=== PATIENT | male | born 1975 | race Two or more races ===

== ENCOUNTER 2025-01-04 16:48 | Emergency (ER) | payer SELFPAY ==
[2025-01-04 17:01] VITALS: TEMP 98.6; BMI 37.8
[2025-01-04] MEDS ORDERED: KETOROLAC TROMETHAMINE 30 MG/1 ML VIAL ONE ×2 (18:02→18:15)
[2025-01-04] MEDS ORDERED: ACETAMINOPHEN 500 MG TABLET (FP) ONE (18:02)
[2025-01-04] MEDS: ACETAMINOPHEN 500 MG TABLET (FP) PO ONE (18:12)
[2025-01-04] MEDS: KETOROLAC TROMETHAMINE 30 MG/1 ML VIAL IM ONE (18:14)
[2025-01-04] MEDS: morphine CARPU-JECT 4 MG/1 ML DISP.SYRIN IM ONE (20:45)
[2025-01-04 21:58] LABS: ABSOLUTE IMMATURE GRANULOCYTES 0.04 x10^3/uL (0.0-0.031); BASOPHILS # 0.05 x10^3/uL (0.01-0.08); EOSINOPHIL % 0.6 % (0.8-7.0); EOSINOPHILS # 0.07 x10^3/uL (0.04-0.54); MCHC 33.7 g/dl (32.3-36.5); MEAN CELL VOLUME 101.2 fl (79.0-92.2); MEAN PLT VOLUME 9.0 fl (9.4-12.4); MONOCYTE # 0.94 x10^3/uL (0.30-0.82); MONOCYTE % 7.9 % (5.3-12.2); RDW 11.9 % (12.1-15.9)
[2025-01-04] MEDS ORDERED: LIDOCAINE PATCH REMOVAL MC SCH (22:00)
[2025-01-04 22:25] LABS: CO2 26.0 mmol/L (21-32); GLUCOSE,RANDOM 116.0 mg/dL (74-106)
[2025-01-04 22:28] LABS: CREATININE 0.7 mg/dL (0.55-1.3); SGOT/AST 76.0 U/L (15-37); SGPT/ALT 60.0 U/L (13-61)
[2025-01-04 22:29] LABS: TOT PROT 7.7 g/dl (6.4-8.2)
[2025-01-04 22:31] LABS: ALK PHOS 96.0 U/L (45-117)
[2025-01-04 23:16] LABS: HCV DIAGNOSTIC IN-HOUSE W/RFLX NON-REACTIVE (NONREACTIVE)
[2025-01-04 23:19] LABS: HIV INTERPRETATION NEGATIVE (NEGATIVE)
[2025-01-05] MEDS ORDERED: LIDOCAINE 4% PATCH TP ONE (00:30)
[2025-01-05] MEDS: LIDOCAINE 4% PATCH TP ONE (00:46)
[2025-01-05 00:58] VITALS: BP 138/82; PULSE 74; RESP 14
== END 2025-01-05 01:03 | disposition home or self-care (01) ==
LOC: JER 16:48
PROC: 3E0233Z Introduction of Anti-inflammatory into Muscle, Percutaneous Approach (ICD-10-PCS; principal; 2025-01-04)
PROC: 3E023NZ Introduction of Analgesics, Hypnotics, Sedatives into Muscle, Percutaneous Approach (ICD-10-PCS; 2025-01-04)
DX: S22.42XA Multiple fractures of ribs, left side, initial encounter for closed fracture (principal); W01.0XXA Fall on same level from slipping, tripping and stumbling without subsequent striking against object, initial encounter; Y92.002 Bathroom of unspecified non-institutional (private) residence as the place of occurrence of the external cause
CPT/HCPCS: 36415; 71250-TC; 80053; 84484; 85025; 86803; 87389; 93005; 93010; 99285-25

== ENCOUNTER 2025-01-09 01:24 | Emergency (ER) | payer SELFPAY ==
[2025-01-09 01:34] VITALS: BP 123/80; PULSE 66; RESP 18; TEMP 98.1; BMI 37.8
[2025-01-09] MEDS ORDERED: LIDOCAINE 5% TOPICAL PATCH ONE ×2 (02:33→04:40)
[2025-01-09] MEDS ORDERED: ACETAMINOPHEN INJECTION 100 ML ONE (02:33)
[2025-01-09 02:53] LABS: ABSOLUTE IMMATURE GRANULOCYTES 0.02 x10^3/uL (0.0-0.031); BASOPHILS # 0.05 x10^3/uL (0.01-0.08); EOSINOPHIL % 1.9 % (0.8-7.0); EOSINOPHILS # 0.17 x10^3/uL (0.04-0.54); MCHC 34.6 g/dl (32.3-36.5); MEAN CELL VOLUME 99.7 fl (79.0-92.2); MEAN PLT VOLUME 9.3 fl (9.4-12.4); MONOCYTE # 0.81 x10^3/uL (0.30-0.82); MONOCYTE % 9.1 % (5.3-12.2); RDW 11.8 % (12.1-15.9)
[2025-01-09] MEDS: ACETAMINOPHEN 1000 MG/100 ML BAG IVPB ONE (02:56)
[2025-01-09] MEDS: LIDOCAINE 5% TOPICAL PATCH TP ONE ×2 (02:56→04:49)
[2025-01-09 03:47] LABS: CO2 28.0 mmol/L (21-32)
[2025-01-09 03:48] LABS: GLUCOSE,RANDOM 104.0 mg/dL (74-106)
[2025-01-09 03:51] LABS: CREATININE 0.6 mg/dL (0.55-1.3); SGOT/AST 109.0 U/L (15-37); SGPT/ALT 75.0 U/L (13-61)
[2025-01-09 03:52] LABS: TOT PROT 7.4 g/dl (6.4-8.2)
[2025-01-09 03:53] LABS: ALK PHOS 86.0 U/L (45-117)
[2025-01-09 03:55] LABS: N-TERMINAL BNP 22.0 pg/ml (5-125)
[2025-01-09] MEDS ORDERED: LIDOCAINE PATCH REMOVAL MC SCH ×2 (22:00)
== END 2025-01-09 04:51 | disposition home or self-care (01) ==
LOC: JER 01:24
PROC: 3E033NZ Introduction of Analgesics, Hypnotics, Sedatives into Peripheral Vein, Percutaneous Approach (ICD-10-PCS; principal; 2025-01-09)
DX: K42.0 Umbilical hernia with obstruction, without gangrene (principal); R07.81 Pleurodynia; M79.89 Other specified soft tissue disorders; R06.02 Shortness of breath; R05.9 Cough, unspecified
CPT/HCPCS: 36415; 71046-TC-FY; 80053; 83880; 85025; 93005; 93010; 99285-25